=== PATIENT | female | born 1980 | race Caucasian/White ===

== ENCOUNTER 2017-10-11 12:04 | Emergency (ER) | payer BC ==
[2017-10-11] MEDS ORDERED: LIDOCAINE 1% INJ-PF (10 MG/ML) 30 ML SDV INJ ONE (12:52)
[2017-10-11] MEDS ORDERED: DIPH/PERTUSS(ACELL)/TETANUS VAC/PF 0.5 ML SYR (>=10YO) IM ONE (12:55)
--- NOTE | 2017-10-11 12:56 | ER Document Report ---
ED Hand/Wrist Injury - General Chief Complaint: Laceration Stated Complaint: FINGER LACERATION Time Seen by Provider: 10/11/17 12:22 Mode of Arrival: Ambulatory Information source: Patient Notes: 37-year-old female presents to ED for laceration to the left middle finger. She states she was using a new mincemeat maker and she sliced the end of her finger. She had it wrapped up in a 4 x 4 and the bleeding was under control. States her tetanus is not up-to-date. She is alert and oriented able to feed speak in full sentences and walks with a steady gait. TRAVEL OUTSIDE OF THE [place] IN LAST 30 DAYS: Yes COUNTRY TRAVELED TO/FROM: [place] - [facility] Injury to: Middle finger Onset: Just prior to arrival Where: Home, Indoors Timing: Still present Quality of pain: Sharp Severity: Moderate Pain Level: 4 Context: Laceration - Related Data Allergies/Adverse Reactions: amoxicillin Allergy (Verified 10/11/17 12:38) Penicillins Allergy (Verified 10/11/17 12:38) Past Medical History - General Information source: Patient - Social History Smoking Status: Former Smoker Cigarette use (# per day): No Chew tobacco use (# tins/day): No Smoking Education Provided: No Frequency of alcohol use: None Drug Abuse: None Occupation: [employer] Lives with: Family Family History: Arthritis, COPD, CVA, DM, Hyperlipidemia, Hypertension, Malignancy, Thyroid Disfunction Patient has suicidal ideation: No Patient has homicidal ideation: No - Past Medical History Cardiac Medical History: Reports: None Pulmonary Medical History: Reports: Hx Asthma, Hx Bronchitis EENT Medical History: Reports: None Neurological Medical History: Reports: None Endocrine Medical History: Reports: None Renal/ Medical History: Reports: None Malignancy Medical History: Reports: None Musculoskeltal Medical History: Reports Hx Arthritis, Reports Hx Musculoskeletal Deformity, Reports Hx Musculoskeletal Trauma Skin Medical History: Reports None Psychiatric Medical History: Reports: Hx Anxiety, Hx Depression Traumatic Medical History: Reports: None Infectious Medical History: Reports: None Past Surgical History: Reports: Hx Myringotomy - [place] tooth, Hx Oral Surgery - Jaw surgery, Hx Tubal Ligation Review of Systems - Review of Systems Constitutional: No symptoms reported EENT: No symptoms reported Cardiovascular: No symptoms reported Respiratory: No symptoms reported Gastrointestinal: No symptoms reported Genitourinary: No symptoms reported Female Genitourinary: No symptoms reported Musculoskeletal: No symptoms reported Skin: Other - Laceration to the end of the third finger including the nail. Hematologic/Lymphatic: No symptoms reported Neurological/Psychological: No symptoms reported -: Yes All other systems reviewed and negative Physical Exam - Vital signs Vitals: Temp Pulse Resp BP Pulse Ox 98.6 F 77 16 148/88 H 100 10/11/17 12:10 10/11/17 12:10 10/11/17 12:10 10/11/17 12:10 10/11/17 12:10 Interpretation: Normal - General General appearance: Appears well, Alert - HEENT Head: Normocephalic, Atraumatic Eyes: Normal Pupils: PERRL - Respiratory Respiratory status: No respiratory distress Chest status: Nontender Breath sounds: Normal Chest palpation: Normal - Cardiovascular Rhythm: Regular Heart sounds: Normal auscultation Murmur: No - Abdominal Inspection: Normal Distension: No distension Bowel sounds: Normal Tenderness: Nontender Organomegaly: No organomegaly - Back Back: Normal, Nontender - Extremities General upper extremity: Normal ROM, Normal temperature General lower extremity: Normal inspection, Nontender, Normal color, Normal ROM , Normal temperature, Normal weight bearing. No: Benjamin's sign Hand: Tender, Ecchymosis, Laceration - Left third finger, Nail injury, No evidence of human bite, No evidence of FB, Swelling. No: Abrasion, Deformity, Dislocation, Instability, Tendon deficit - Neurological Neuro grossly intact: Yes Cognition: Normal Orientation: AAOx4 [place] Coma Scale Eye Opening: Spontaneous Jeromy Coma Scale Verbal: Oriented Jer[place] Coma Scale Motor: Obeys Commands Jeromy Coma Scale Total: 15 Speech: Normal Motor strength normal: LUE, RUE, LLE, RLE Sensory: Normal - Psychological Associated symptoms: Normal affect, Normal mood - Skin Skin Temperature: Warm Skin Moisture: Dry Skin Color: Normal Course - Re-evaluation Re-evalutation: 10/11/17 15:35 X-ray discussed with patient. Patient was discharged home with prescription for Keflex and she was given Keflex in the emergency room and a [place] dispense pack for pain. Patient was instructed to elevate the injury and wound care discussed with patient patient to follow-up with orthopedics at her primary doctor. - Vital Signs Vital signs: Temp Pulse Resp BP Pulse Ox 98 F 67 20 140/98 H 100 10/11/17 14:48 10/11/17 14:48 10/11/17 14:48 10/11/17 14:48 10/11/17 14:48 - Diagnostic Test Radiology reviewed: Image reviewed, Reports reviewed Procedures - Immobilization Left Finger 3rd digit Time completed: 14:05 Immobilizer type: Finger protection Performed by: PCT Post-Proc Neuro Vasc Exam: Normal Alignment checked and good: Yes - Laceration/Wound Repair Left Finger 3rd digit Time completed: 14:05 Wound length (cm): 3 Wound's Depth, Shape: Into muscle, Other - Laceration to the nail about senior care down Laceration pre-procedure: Sterile PPE donned, Shur-Clens applied Anesthetic type: 1% Lidocaine Volume Anesthetic (mLs): 6 Wound explored: Clean Irrigated w/ Saline (mLs): 400 Wound Repaired With: Sutures Suture Size/Type: 5:0, Ethilon Number of Sutures: 6 Layer Closure?: No Post-procedure wound care: Sterile dressing applied, Splint applied Post-procedure NV exam normal: No - Laceration to the nail and across the finger Notes: 10/11/17 15:34 2 sutures applied through the nail through the skin and back out the nail. The rest of the sutures into the finger only. Digital block to the last joint of the nail for sutures Discharge - Discharge Clinical Impression: 3rd finger laceration with injury to nail HTN (hypertension) Qualifiers: Hypertension type: unspecified Qualified Code(s): I10 - Essential (primary) hypertension Condition: Stable Disposition: HOME, SELF-CARE Additional Instructions: Hand Laceration A laceration on the hand can present special problems. It may be difficult to keep the wound dry. Motion of the fingers can disturb the healing edges. Your work may involve exposure to damaging chemicals or water. Keep the wound clean and dry. If you can't keep the cut dry, undisturbed, and free of chemical exposure, please discuss this with the doctor. If any water or chemical gets onto the dressing, remove it, blot the wound dry, then apply a fresh bandage. Dressings should be changed every day. If you feel the stitches pulling as you move the hand, a splint or other form of protection is needed. If any signs of infection occur (swelling, redness, increasing tenderness, red streaks, tender lumps in the armpit, or fever), see the doctor immediately. SOAP CLEANSING: Gently wash the wound daily using a mild soap (like Ivory, Phisoderm, Neutrogena). Use warm water, rubbing gently until all debris, ooze, and crusting have been washed from the wound. Allow to dry briefly (about 10 minutes) after cleaning. Repeat this cleansing at least three times a day for the first two days and then once or twice a day. ANTIBIOTIC OINTMENT PROTECTION: Your wounds are such that dressing them is not practical or optional. After cleansing, you should apply a thin coating of antibiotic ointment ( Bacitracin, not Neosporin) to the wounds at least three times daily. This lessens infection risk, and may decrease the amount of scarring. Use a q-tip or dull butter knife, not your finger, to apply this ointment. Any debris or ooze which builds up in the ointment should be gently rubbed off with a sterile gauze pad. Harder crusting may need to be gently scrubbed off with a clean wash cloth with soap and warm water, perhaps applying a warm, wet wash cloth to the wound for ten minutes first. Development of redness, severe itching, or blistering may mean allergy to the ointment. See the doctor. TETANUS IMMUNIZATION GIVEN: You have been given an immunization against tetanus. Please record this in your records. In general, a booster is needed only once every 10 years. The tetanus shot protects against tetanus or "lockjaw," which is a complication of certain wound infections (the tetanus shot cannot protect against the actual infection). The immunization site may become warm and red due to local reaction. If this occurs, apply warm compresses and take aspirin or ibuprofen to reduce inflammation and discomfort. Return for evaluation if the reaction becomes severe. Cephalexin The antibiotic you've been prescribed is a member of the cephalosporin class. This type of antibiotic covers a wide variety of infections, including those of the skin, lungs, and urinary tract. It's useful for staph infections. This antibiotic is slightly similar to the penicillin family. In rare cases , a person who is allergic to penicillin will also be allergic to this medication. If you have had a severe allergic reaction to penicillin, and have not taken this antibiotic since that time, notify your doctor. Antibiotics which cover many germs ("broad spectrum" antibiotics) are more likely to cause diarrhea or "yeast" infections. Women prone to vaginal yeast problems may suffer an attack after taking this antibiotic. In infants, oral thrush (white spots "stuck" on the cheek) or yeast diaper rash may result. See your doctor if these problems occur. Call at once if you develop itching, hives , shortness of breath, or lightheadedness. Oral Narcotic Medication You have been given a [place] dispense pack for pain control. This medication is a narcotic. It's best taken with food, as nausea can result if taken on an empty stomach. Don't operate machinery or drive within six hours of taking this medication. Do not combine this medicine with alcohol, or with any medication which can cause sedation (such as cold tablets or sleeping pills) unless you get permission from the physician. Narcotics tend to cause constipation. If possible, drink plenty of fluids and eat a diet high in fiber and fruits. FOLLOW-UP CARE: Please return in ___4__ days for an infection check and dressing change. Your sutures should be removed in _6____ days. To facilitate a timely removal of your sutures, you may return to the Emergency Department at [facility]. You do not need to call for an appointment, but the best time to come in for suture removal is early in the morning. If you have been referred to another physician for follow-up care, call that physicians office for an appointment as you were instructed. If you experience a significant change in your laceration, or if you are concerned there may be an infection (swelling, redness, drainage, increasing tenderness, red streaks, tender lumps in the armpit or groin above the laceration, or fever) , return to the Emergency Department immediately re-evaluation. Prescriptions: Cephalexin Monohydrate [Keflex 500 mg Capsule] 500 mg PO Q6H 10 Days capsule Forms: Elevated Blood Pressure, Return to Work Referrals: MILES DUBON MD [ACTIVE STAFF] - Follow up as needed
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
[2017-10-11] MEDS ORDERED: CEPHALEXIN 500 MG CAPSULE PO ONE (14:03)
[2017-10-11] MEDS ORDERED: HYDROCODONE/ACETAMINOPHEN 5-325 MG (6 TAB/ER DISP) PO PRN (14:08)
[2017-10-11 14:49] VITALS: BP 140/98
== END 2017-10-11 14:48 | disposition home or self-care (01) ==
LOC: ER 12:04
DX: S61.313A Laceration without foreign body of left middle finger with damage to nail, initial encounter (principal); W26.8XXA Contact with other sharp object(s), not elsewhere classified, initial encounter; Y92.009 Unspecified place in unspecified non-institutional (private) residence as the place of occurrence of the external cause; J45.909 Unspecified asthma, uncomplicated; Z88.0 Allergy status to penicillin; Z87.891 Personal history of nicotine dependence
CPT/HCPCS: 99282; 90471; 73140; 90715; 12002; J3490

== ENCOUNTER 2019-03-13 20:07 | Emergency (ER) | payer OTHER ==
[2019-03-13] MEDS ORDERED: IBUPROFEN 800 MG TABLET PO ONE (22:48)
[2019-03-13] MEDS ORDERED: HYDROCODONE/ACETAMINOPHEN 5-325 MG TABLET PO ONE (22:48)
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
--- NOTE | 2019-03-13 23:27 | RADIOLOGY REPORT (SQ) ---
EXAM DESCRIPTION: XR KNEE 4 OR MORE VIEWS COMPLETED DATE/TME: 03/13/2019 22:47 CLINICAL HISTORY: 39 years, Female, INJURY COMPARISON: None. FINDINGS: 4 views of the right knee. No acute fracture or dislocation. Normal osseous mineralization. No definite joint effusion. IMPRESSION: 1. No acute fracture or dislocation. copyright 2010 [employer]- All Rights Reserved
--- NOTE | 2019-03-13 23:31 | RADIOLOGY REPORT (SQ) ---
EXAM DESCRIPTION: XR SPINE 1 VIEW COMPLETED DATE/TME: 03/13/2019 22:47 CLINICAL HISTORY: 39 years, Female, INJURY COMPARISON: None. NUMBER OF VIEWS: 3 TECHNIQUE: 3 view cervical spine LIMITATIONS: None. FINDINGS: Vertebral body height and alignment is preserved. The disc spaces are maintained. Prevertebral soft tissues are normal IMPRESSION: Negative exam copyright 2011 [email or web address]- All Rights Reserved
[2019-03-14 00:56] VITALS: BP 127/97
== END 2019-03-14 00:55 | disposition home or self-care (01) ==
LOC: ER 20:07
DX: T14.8XXA Other injury of unspecified body region, initial encounter (principal); S80.01XA Contusion of right knee, initial encounter; M54.2 Cervicalgia; M25.561 Pain in right knee; M25.511 Pain in right shoulder; V43.52XA Car driver injured in collision with other type car in traffic accident, initial encounter; Z88.0 Allergy status to penicillin; J45.909 Unspecified asthma, uncomplicated
CPT/HCPCS: 72040; 99283